=== PATIENT | female | born 1995 ===

== ENCOUNTER 2017-02-16 17:59 | Emergency (ER) | payer MEDICAID, OTHER ==
[2017-02-16 18:05] VITALS: BP 110/65; PULSE 105; RESP 16; TEMP 97.4; O2SAT 96
--- NOTE | 2017-02-16 18:19 | ED PDOC ---
HPI: Female Pain Time Seen by Provider: 02/16/17 18:00 Chief Complaint (Nursing): Female Genitourinary Chief Complaint (Provider): Dysuria History Per: Patient History/Exam Limitations: no limitations Additional Complaint(s): Patient is a 21 y/o female with no significant past medical history presenting to the emergency department for dysuria and urinary frequency for three days with associated abdominal pain. Reports having history of symptoms in the past. Denies back pain, vomiting, or other complaints. PCP: none provided. Past Medical History Reviewed: Historical Data, Nursing Documentation, Vital Signs Vital Signs: Last Vital Signs Temp 97.4 F L 02/16/17 18:02 Pulse 105 H 02/16/17 18:02 Resp 16 02/16/17 18:02 BP 110/65 02/16/17 18:02 Pulse Ox 96 02/16/17 18:02 - Medical History PMH: Asthma - Family History Family History: States: Unknown Family Hx - Immunization History Hx Tetanus Toxoid Vaccination: No Hx Influenza Vaccination: No Hx Pneumococcal Vaccination: No - Home Medications Home Medications: Ambulatory Orders Medication Instructions Recorded Doxycycline Hyclate 100 mg PO Q12 #14 tab 12/31/15 Metronidazole [Flagyl] 500 mg PO BID #14 tab 12/31/15 Acetaminophen with Codeine 1 tab PO Q6H PRN #15 tab 01/31/16 [Tylenol with Codeine No. 3 300 mg-30 mg] Docusate [Colace] 100 mg PO Q12H PRN #10 cap 01/31/16 Cephalexin [Keflex] 500 mg PO TID #15 cap 02/16/17 Phenazopyridine [Pyridium] 100 mg PO BID #6 tab 02/16/17 - Allergies Allergies/Adverse Reactions: Allergies Allergy/AdvReac Type Severity Reaction Status Date / Time No Known Allergies Allergy Verified 12/31/15 15:53 Review of Systems ROS Statement: Except As Marked, All Systems Reviewed And Found Negative Gastrointestinal: Negative for: Vomiting Genitourinary Female: Positive for: Dysuria, Frequency Musculoskeletal: Negative for: Back Pain Physical Exam - Reviewed Nursing Documentation Reviewed: Yes Vital Signs Reviewed: Yes - Physical Exam Appears: Positive for: Well, Non-toxic, No Acute Distress Head Exam: Positive for: ATRAUMATIC, NORMAL INSPECTION, NORMOCEPHALIC Skin: Positive for: Normal Color, Warm, Dry Eye Exam: Positive for: Normal appearance Neck: Positive for: Normal, Painless ROM Cardiovascular/Chest: Positive for: Regular Rate, Rhythm Respiratory: Negative for: Accessory Muscle Use, Respiratory Distress Gastrointestinal/Abdominal: Positive for: Normal Exam, Soft. Negative for: Tenderness Extremity: Positive for: Normal ROM. Negative for: Pedal Edema Neurologic/Psych: Positive for: Alert, Oriented (x3) - ECG O2 Sat by Pulse Oximetry: 96 (RA) Pulse Ox Interpretation: Normal Medical Decision Making Medical Decision Making: Time: 18:16 Initial impression: Painful urination Initial plan: ED Urine Dipstick ED Urine Urine Culture Urinalysis ~ Scribe Attestation: Documented by Esme Jj, acting as a scribe for TEDDY Womack. Provider Scribe Attestation: All medical record entries made by the Scribe were at my direction and personally dictated by me. I have reviewed the chart and agree that the record accurately reflects my personal performance of the history, physical exam, medical decision making, and the department course for this patient. I have also personally directed, reviewed, and agree with the discharge instructions and disposition. Disposition - Clinical Impression Clinical Impression: Urinary tract infection - Patient ED Disposition Is Patient to be Admitted: No - Disposition Referrals: [facility] [Outside] Disposition: Routine/Home Disposition Time: 18:59 Condition: FAIR Prescriptions: Cephalexin [Keflex] 500 mg PO TID #15 cap Phenazopyridine [Pyridium] 100 mg PO BID #6 tab Instructions: Urinary Tract Infection in Women (GEN) Forms: [employer] (Sinhala)
[2017-02-16 20:15] LABS: SQUAMOUS EPITHIAL 6 /hpf (0-5); URINE BACTERIA RARE (<OCC); URINE BILIRUBIN NEGATIVE (NEGATIVE); URINE BLOOD LARGE (NEGATIVE); URINE CLARITY CLOUDY (Clear); URINE COLOR YELLOW (YELLOW); URINE GLUCOSE (UA) NEG (Normal); URINE LEUKOCYTE ESTERASE LARGE Leu/uL (Negative); URINE NITRATE NEGATIVE (NEGATIVE); URINE PROTEIN 30 mg/dL (NEGATIVE); URINE UROBILINOGEN 0.2-1.0 mg/dL (0.2-1.0)
== END 2017-02-16 19:06 | disposition home or self-care (01) ==
LOC: H.ER 17:59
DX: N39.0 Urinary tract infection, site not specified (principal); J45.909 Unspecified asthma, uncomplicated

== ENCOUNTER 2017-11-15 21:58 | Emergency (ER) | payer OTHER ==
[2017-11-15 22:22] VITALS: BP 112/70; PULSE 86; RESP 20; TEMP 98.5; O2SAT 99
--- NOTE | 2017-11-15 22:27 | ED PDOC ---
HPI: Female Pain Time Seen by Provider: 11/15/17 22:26 Chief Complaint (Nursing): Female Genitourinary Chief Complaint (Provider): dysuria/suprapubic pain History Per: Patient (22 y/o femlae here for dysuria noted onset today associated with suprapubic pain. Denies any vomiting/back pain/fever. Has had similar symptoms few years ago diagnosed with uti at that time.) Past Medical History Reviewed: Historical Data, Nursing Documentation, Vital Signs Vital Signs: Last Vital Signs Temp 98.5 F 11/15/17 22:20 Pulse 86 11/15/17 22:20 Resp 20 11/15/17 22:20 BP 112/70 11/15/17 22:20 Pulse Ox 99 11/15/17 22:20 - Medical History PMH: Asthma - Family History Family History: States: Unknown Family Hx - Immunization History Hx Tetanus Toxoid Vaccination: No Hx Influenza Vaccination: No Hx Pneumococcal Vaccination: No - Home Medications Home Medications: Ambulatory Orders Medication Instructions Recorded Metronidazole [Flagyl] 500 mg PO BID #14 tab 12/31/15 RX: Doxycycline Hyclate 100 mg PO Q12 #14 tab 12/31/15 Acetaminophen with Codeine 1 tab PO Q6H PRN #15 tab 01/31/16 [Tylenol with Codeine No. 3 300 mg-30 mg] RX: Docusate [Colace] 100 mg PO Q12H PRN #10 cap 01/31/16 Phenazopyridine [Pyridium] 100 mg PO BID #6 tab 02/16/17 RX: Cephalexin [Keflex] 500 mg PO TID #15 cap 02/16/17 Phenazopyridine HCl [Pyridium] 200 mg PO Q12 PRN #6 tablet 11/15/17 RX: Cephalexin [Keflex] 500 mg PO Q8 #15 capsule 11/15/17 - Allergies Allergies/Adverse Reactions: Allergies Allergy/AdvReac Type Severity Reaction Status Date / Time shrimp Allergy ANAPHYLAXIS Verified 11/15/17 22:20 Review of Systems ROS Statement: Except As Marked, All Systems Reviewed And Found Negative Physical Exam - Reviewed Nursing Documentation Reviewed: Yes Vital Signs Reviewed: Yes - Physical Exam Appears: Positive for: Well, Non-toxic, No Acute Distress Head Exam: Positive for: ATRAUMATIC, NORMAL INSPECTION, NORMOCEPHALIC Skin: Positive for: Normal Color, Warm, DRY Eye Exam: Positive for: EOMI, Normal appearance, PERRL ENT: Positive for: Normal ENT Inspection Neck: Positive for: Normal, Painless ROM Cardiovascular/Chest: Positive for: Regular Rate, Rhythm Respiratory: Positive for: CNT, Normal Breath Sounds Gastrointestinal/Abdominal: Positive for: Normal Exam, Soft Back: Positive for: Normal Inspection Extremity: Positive for: Normal ROM Neurologic/Psych: Positive for: Alert, Oriented - Laboratory Results Urine POC: Negative Urine dip results: Positive for: Leukocyte Esterase. Negative for: Blood, Nitrate, Ketones, Glucose, Bilirubin - ECG O2 Sat by Pulse Oximetry: 99 - Progress ED Course And Treament: PATIENT REQUESTS FIRST DOSE PYRIDIUM/KEFLEX IN ED PYRIDIUM 200MG X 1 DOSE PO KEFLEX 500MG X 1 DOSE PO Disposition - Clinical Impression Clinical Impression: Urinary tract infection - Patient ED Disposition Is Patient to be Admitted: No - Disposition Referrals: [facility] [Outside] Disposition Time: 22:28 Condition: FAIR Prescriptions: RX: Cephalexin [Keflex] 500 mg PO Q8 #15 capsule Phenazopyridine HCl [Pyridium] 200 mg PO Q12 PRN #6 tablet PRN Reason: Urinary Discomt Instructions: Urinary Tract Infections in Adults
[2017-11-15 23:50] LABS: SQUAMOUS EPITHIAL 3 /hpf (0-5); URINE BACTERIA RARE (<OCC); URINE BILIRUBIN NEGATIVE (NEGATIVE); URINE BLOOD SMALL (NEGATIVE); URINE CLARITY SLIGHTY-CLOUDY (Clear); URINE COLOR YELLOW (YELLOW); URINE GLUCOSE (UA) NEG (Normal); URINE LEUKOCYTE ESTERASE MOD Leu/uL (Negative); URINE PROTEIN NEGATIVE (NEGATIVE); URINE UROBILINOGEN 0.2-1.0 mg/dL (0.2-1.0)
== END 2017-11-15 23:01 | disposition home or self-care (01) ==
LOC: H.ER 21:58
DX: N39.0 Urinary tract infection, site not specified (principal); J45.909 Unspecified asthma, uncomplicated

== ENCOUNTER 2017-12-12 20:36 | Emergency (ER) | payer OTHER ==
[2017-12-12] MEDS ORDERED: Albuterol-Ipratrop 3 mg / 0.5 (3 ml) UD INH STA (20:54)
--- NOTE | 2017-12-12 21:00 | ED PDOC ---
History of Present Illness History of Present Illness: Lottie Bradshaw, a 22 year old female with a past medical history of asthma, presents to the ED complaining of cough and wheezing associated with production of yellow phlegm onset 2 weeks. She also reports having chills and a fever for x1 day. Patient does not have medication for asthma at home. No other complaints were noted. PCP: none provided HPI: Influenza Time Seen by Provider: 12/12/17 20:52 Chief Complaint: Cough, Cold, Congestion Chief Complaint (Provider): Cough, Wheezing History Per: Patient Exam Limitations: no limitations Onset/Duration Of Symptoms: Days (x14) Symptoms include: fever, cough, difficulty breathing Additional complaint(s):: Lottie Bradshaw, a 22 year old female with a past medical history of asthma, presents to the ED complaining of cough and wheezing associated with production of yellow phlegm onset 2 weeks. She also reports having chills and a fever for x1 day. Patient does not have medication for asthma at home. No other complaints were noted. PCP: none provided Past Medical History Reviewed: Historical Data, Nursing Documentation, Vital Signs Vital Signs: Last Vital Signs Temp 98.0 F 12/12/17 20:45 Pulse 98 H 12/12/17 20:45 Resp 16 12/12/17 20:45 BP 130/78 12/12/17 20:45 Pulse Ox 96 12/12/17 20:45 - Medical History PMH: Asthma - Family History Family History: States: Unknown Family Hx - Social History Alcohol: Social Drugs: Denies - Immunization History Hx Tetanus Toxoid Vaccination: No Hx Influenza Vaccination: No Hx Pneumococcal Vaccination: No - Home Medications Home Medications: Ambulatory Orders Medication Instructions Recorded Doxycycline Hyclate 100 mg PO Q12 #14 tab 12/31/15 Metronidazole [Flagyl] 500 mg PO BID #14 tab 12/31/15 Acetaminophen with Codeine 1 tab PO Q6H PRN #15 tab 01/31/16 [Tylenol with Codeine No. 3 300 mg-30 mg] Docusate [Colace] 100 mg PO Q12H PRN #10 cap 01/31/16 Cephalexin [Keflex] 500 mg PO TID #15 cap 02/16/17 Phenazopyridine [Pyridium] 100 mg PO BID #6 tab 02/16/17 Cephalexin [Keflex] 500 mg PO Q8 #15 capsule 11/15/17 Phenazopyridine HCl [Pyridium] 200 mg PO Q12 PRN #6 tablet 11/15/17 Albuterol HFA [Ventolin HFA 90 1 puff IH BID PRN #1 unit 12/12/17 mcg/actuation (8 g)] predniSONE [predniSONE Tab] 20 mg PO DAILY #12 tab 12/12/17 - Allergies Allergies/Adverse Reactions: Allergies Allergy/AdvReac Type Severity Reaction Status Date / Time shrimp Allergy ANAPHYLAXIS Verified 11/15/17 22:20 seafood Allergy ANAPHYLAXIS Uncoded 12/12/17 20:45 Review of Systems ROS Statement: Except As Marked, All Systems Reviewed And Found Negative Constitutional: Positive for: Fever, Chills Respiratory: Positive for: Cough (with production of yellow phlegm), Wheezing Physical Exam - Reviewed Nursing Documentation Reviewed: Yes Vital Signs Reviewed: Yes - Physical Exam Appears: Positive for: Well, Non-toxic, No Acute Distress Head Exam: Positive for: ATRAUMATIC, NORMAL INSPECTION, NORMOCEPHALIC Skin: Positive for: Normal Color, Warm, DRY Eye Exam: Positive for: Normal appearance ENT: Positive for: Normal ENT Inspection Neck: Positive for: Normal Cardiovascular/Chest: Positive for: Regular Rate, Rhythm. Negative for: Murmur Respiratory: Positive for: Normal Breath Sounds, Wheezing (bilateral diffuse) Gastrointestinal/Abdominal: Positive for: Normal Exam, Soft Back: Positive for: Normal Inspection Extremity: Positive for: Normal ROM Neurologic/Psych: Positive for: Alert, Oriented Medical Decision Making Medical Decision Making: Time: 2054 Initial Plan: --Duonep 3 mL INH --peak flow pre/post TX 2153 --X-ray chest --urine test CXR without acute abnormalities Scribe Attestation: Documented by Tucker Valentin, acting as a scribe for Chrissy Kotuski, PA-C Provider Scribe Attestation: All medical record entries made by the Scribe were at my direction and personall y dictated by me. I have reviewed the chart and agree that the record accurately reflects my personal performance of the history, physical exam, medical decision making, and the department course for this patient. I have also personally directed, reviewed, and agree with the discharge instructions and disposition. - ECG O2 Sat by Pulse Oximetry: 96 (RA) Pulse Ox Interpretation: Normal Disposition - Clinical Impression Clinical Impression: Cough, Asthma - Patient ED Disposition Is Patient to be Admitted: No Counseled Patient/Family Regarding: Diagnosis, Need For Followup, Rx Given - Disposition Disposition: Routine/Home Disposition Time: 23:02 Condition: GOOD Prescriptions: Albuterol HFA [Ventolin HFA 90 mcg/actuation (8 g)] 1 puff IH BID PRN #1 unit PRN Reason: Wheezing predniSONE [predniSONE Tab] 20 mg PO DAILY #12 tab Instructions: Asthma, Adult (DC) Forms: [employer] (Persian)
[2017-12-12] MEDS ORDERED: Albuterol-Ipratrop 3 mg / 0.5 (3 ml) UD ONE (21:04)
--- NOTE | 2017-12-12 22:23 | RAD ---
Date of service: 12/12/2017 HISTORY: cough x 2 weeks, hx asthma COMPARISON: No prior. TECHNIQUE: Chest PA and lateral FINDINGS: LUNGS: No active pulmonary disease. PLEURA: No significant pleural effusion identified. No pneumothorax apparent. CARDIOVASCULAR: No aortic atherosclerotic calcification present. Normal cardiac size. No pulmonary vascular congestion. OSSEOUS STRUCTURES: No significant abnormalities. VISUALIZED UPPER ABDOMEN: Normal. OTHER FINDINGS: None. IMPRESSION: No active disease.
[2017-12-12 22:45] VITALS: BP 127/83; PULSE 89; RESP 17; TEMP 98.1
[2017-12-12 23:03] VITALS: O2SAT 96
== END 2017-12-12 23:09 | disposition home or self-care (01) ==
LOC: H.ER 20:36
DX: J45.909 Unspecified asthma, uncomplicated (principal); R05 Cough; Z79.899 Other long term (current) drug therapy

== ENCOUNTER 2018-03-30 19:08 | Emergency (ER) | payer SELFPAY ==
[2018-03-30 19:29] VITALS: RESP 18; O2SAT 100
--- NOTE | 2018-03-30 21:07 | ED PDOC ---
HPI: Abdomen Time Seen by Provider: 03/30/18 20:32 Chief Complaint (Nursing): Abdominal Pain Chief Complaint (Provider): pelvic pain History Per: Patient History/Exam Limitations: no limitations Onset/Duration Of Symptoms: Days (3 months), Waxing/Waning Current Symptoms Are (Timing): Still Present Additional Complaint(s): 22 y/o female presents for evaluation of intermittent pelvic pain x 3 months. Patient notes pain to be worse after intercourse. Denies fever, na usea/vomiting, chest pain, shortness of breath, palpitations, urinary symptoms, vaginal bleeding/discharge. No new partners or reason to suspect STD. Has not seen Plate Conditioner for complaint. Past Medical History Reviewed: Historical Data, Nursing Documentation, Vital Signs Vital Signs: Last Vital Signs Temp 98.3 F 03/30/18 19:28 Pulse 90 03/30/18 19:28 Resp 18 03/30/18 19:28 BP 122/71 03/30/18 19:28 Pulse Ox 100 03/30/18 19:28 - Medical History PMH: Asthma - Surgical History Surgical History: No Surg Hx - Family History Family History: States: Unknown Family Hx - Immunization History Hx Tetanus Toxoid Vaccination: No Hx Influenza Vaccination: No Hx Pneumococcal Vaccination: No - Home Medications Home Medications: Ambulatory Orders Medication Instructions Recorded Doxycycline Hyclate 100 mg PO Q12 #14 tab 12/31/15 Metronidazole [Flagyl] 500 mg PO BID #14 tab 12/31/15 Acetaminophen with Codeine 1 tab PO Q6H PRN #15 tab 01/31/16 [Tylenol with Codeine No. 3 300 mg-30 mg] Docusate [Colace] 100 mg PO Q12H PRN #10 cap 01/31/16 Cephalexin [Keflex] 500 mg PO TID #15 cap 02/16/17 Phenazopyridine [Pyridium] 100 mg PO BID #6 tab 02/16/17 Cephalexin [Keflex] 500 mg PO Q8 #15 capsule 11/15/17 Phenazopyridine HCl [Pyridium] 200 mg PO Q12 PRN #6 tablet 11/15/17 Albuterol HFA [Ventolin HFA 90 1 puff IH BID PRN #1 unit 12/12/17 mcg/actuation (8 g)] predniSONE [predniSONE Tab] 20 mg PO DAILY #12 tab 12/12/17 Naproxen [Naprosyn] 500 mg PO Q12 PRN #20 tablet 03/30/18 - Allergies Allergies/Adverse Reactions: Allergies Allergy/AdvReac Type Severity Reaction Status Date / Time shrimp Allergy ANAPHYLAXIS Verified 03/30/18 19:27 seafood Allergy ANAPHYLAXIS Uncoded 03/30/18 19:27 Review of Systems ROS Statement: Except As Marked, All Systems Reviewed And Found Negative Genitourinary Female: Positive for: Pelvic Pain Physical Exam - Reviewed Nursing Documentation Reviewed: Yes Vital Signs Reviewed: Yes - Physical Exam Appears: Positive for: Well, Non-toxic, No Acute Distress Head Exam: Positive for: ATRAUMATIC, NORMAL INSPECTION, NORMOCEPHALIC Skin: Positive for: Normal Color Eye Exam: Positive for: Normal appearance ENT: Positive for: Normal ENT Inspection Cardiovascular/Chest: Positive for: Regular Rate, Rhythm Respiratory: Positive for: Normal Breath Sounds Gastrointestinal/Abdominal: Positive for: Bowel Sounds, Soft, Tenderness (suprapubic) Pelvic Exam: Positive for: External Exam Normal, No Cerv. 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 Negative for: Active Bleeding, Blood, Cervicitis, Discharge, Lesions Back: Positive for: Normal Inspection Extremity: Positive for: Normal ROM Neurologic/Psych: Positive for: Alert, Oriented (x3) - Laboratory Results Result Diagrams: 03/30/18 21:42 03/30/18 21:42 - ECG O2 Sat by Pulse Oximetry: 100 - Progress ED Course And Treament: -upreg -udip -cbc -cmp -urinalysis -gc/chlamydia -TV u/s EXAM: US Pelvis, Complete Transvaginal and Transabdominal COMPARISON: None provided. CLINICAL HISTORY: Pelvic pain TECHNIQUE: Transvaginal and transabdominal pelvic ultrasound (complete) with image documentation. FINDINGS: ENDOMETRIUM: The endometrium is thickened measuring 1.1 cm in AP dimension. This likely correlates with the secretory phase of the patient's menstrual cycle.. UTERUS/CERVIX: The uterus is anteverted in position and appears normal in size measuring 7.9 x 3.3 x 4.8 cm in longitudinal, AP and transverse dimensions respectively. No uterine fibroid or other mass evident. A couple of Nabothian cysts are present on the cervical os. RIGHT OVARY Normal Doppler flow. No abnormal mass. A few tiny follicles are noted. Additionally, a 0.9 x 0.8 cm paraovarian cyst is identified. LEFT OVARY: Normal Doppler flow. No abnormal mass. A few tiny follicles are noted. FREE FLUID: Trace free fluid noted within the posterior cul-de-sac. IMPRESSION: 1. Thickening of the endometrium likely correlates with the secretory phase of the patient's menstrual cycle. 2. A couple of nabothian cysts are identified on the cervical loss. 3. Tiny bilateral ovarian follicles are noted. 4. A 0.9 x 0.8 cm right paraovarian cyst is present. 5. Trace free fluid is noted within the posterior cul-de-sac Patient educated on findings, discharged with rx Naproxen Advised follow up Plate Conditioner within 2-3 days Return precautions given Disposition - Clinical Impression Clinical Impression: Ovarian cyst, Pelvic pain - Patient ED Disposition Is Patient to be Admitted: No Counseled Patient/Family Regarding: Studies Performed, Diagnosis, Need For Followup, Rx Given - Disposition [facility] Disposition: Routine/Home Disposition Time: 22:30 Condition: IMPROVED Prescriptions: Naproxen [Naprosyn] 500 mg PO Q12 PRN #20 tablet PRN Reason: Pain, Moderate (4-7) Instructions: Ovarian Cysts, Acute Pelvic Pain (DC) Forms: [employer] (Turkmen)
[2018-03-30 21:58] LABS: BASO % 0.6 % (0.0-2.0); EOS # 0.2 K/uL (0.0-0.7); EOS % 4.5 % (0.0-4.0); HEMOGLOBIN 12.7 g/dL (12.0-16.0); LYMPH # 2.2 K/uL (1.0-4.3); LYMPH % 42.4 % (20.0-40.0); MEAN CELL VOLUME 85.8 fl (81.0-99.0); MEAN CORPUSCULAR HEMOGLOBIN 28.7 pg (27.0-31.0); MEAN CORPUSCULAR HGB CONC 33.4 g/dL (33.0-37.0); MEAN PLATELET VOLUME 8.3 fl (7.2-11.7); MONO # 0.4 K/uL (0.0-0.8); MONO % 7.6 % (0.0-10.0); NEUT # 2.4 K/uL (1.8-7.0); NEUT % 44.9 % (50.0-75.0); NRBC % 0.1 % (0.0-0.0); RBC 4.42 Mil/uL (3.80-5.20); RED CELL DISTRIBUTION WIDTH 13.9 % (11.5-14.5); WHITE BLOOD COUNT 5.3 K/uL (4.8-10.8)
[2018-03-30 22:00] LABS: SQUAMOUS EPITHIAL 2 /hpf (0-5); URINE BILIRUBIN NEGATIVE (NEGATIVE); URINE BLOOD NEGATIVE (NEGATIVE); URINE CLARITY CLEAR (Clear); URINE COLOR YELLOW (YELLOW); URINE GLUCOSE (UA) NEG (NEGATIVE); URINE LEUKOCYTE ESTERASE NEG Leu/uL (Negative); URINE PROTEIN NEGATIVE (NEGATIVE); URINE UROBILINOGEN 0.2-1.0 mg/dL (0.2-1.0)
[2018-03-30 22:02] LABS: ALB/GLOB RATIO 1.2 (1.0-2.1); ALBUMIN 4.2 g/dL (3.5-5.0); ALT/SGPT 52 U/L (9-52); AST/SGOT 28 U/L (14-36); BLOOD UREA NITROGEN 16 mg/dl (7-17); CALCIUM 9.9 mg/dL (8.4-10.2); GFR NON-AFRICAN AMERICAN > 60
[2018-03-30 22:58] VITALS: BP 112/69; PULSE 86; TEMP 98
--- NOTE | 2018-03-31 11:25 | US ---
Date of service: 03/30/2018 HISTORY: pelvic pain COMPARISON: None available. TECHNIQUE: Transvaginal FINDINGS: UTERUS: Measures 7.9 x 4.8 x 3.3 cm. Normal in size and appearance. No fibroid or other mass lesion seen. ENDOMETRIUM: Measures 11 mm in diameter. No intrauterine gestation identified. CERVIX: No cervical abnormality identified. RIGHT OVARY: Measures 2.9 x 1.7 x 1.4 cm. No solid mass. Normal flow. Incidental right para ovarian cyst, 9 mm. LEFT OVARY: Measures 2.5 x 2.1 x 1.9 cm. No solid mass. Normal flow. FREE FLUID: Trace fluid in cul-de-sac OTHER FINDINGS: None. IMPRESSION: Unremarkable examination. Incidental 9 mm right paraovarian cyst. Trace fluid in cul-de-sac common nonspecific. No intrauterine gestation. The preliminary findings for this examination were reported by [facility] at 10:26 p.m. on 03/30/2018. There is concurrence of this report with the preliminary findings.
== END 2018-03-30 22:58 | disposition home or self-care (01) ==
LOC: H.ER 19:08
DX: R10.2 Pelvic and perineal pain (principal); N83.201 Unspecified ovarian cyst, right side
CPT/HCPCS: 76830; 80053; 81003; 81025; 85025; 87491; 87591; 99284; J1885